=== PATIENT | female | born 1970 | race Two or more races ===

== ENCOUNTER 2018-02-01 07:44 | Outpatient (CLI) | payer OTHER | END 2018-02-01 08:51 | disposition home or self-care (01) | LOC: RAD 07:44 → RX STUDY 09:15 | DX: E04.8 Other specified nontoxic goiter (principal); R13.19 Other dysphagia ==

== ENCOUNTER 2020-11-05 09:43 | Outpatient (CLI) | payer OTHER | END 2020-11-05 10:13 | disposition home or self-care (01) | LOC: SONOGRAMA 09:43 | PROVIDERS: ATTEND Pathology Anatomic Pathology & Clinical Pathology | DX: D34 Benign neoplasm of thyroid gland (principal); E04.8 Other specified nontoxic goiter ==